=== PATIENT | female | born 1960 | race Caucasian/White ===

== ENCOUNTER 2017-02-21 08:54 | Emergency (ER) | payer OTHER ==
--- NOTE | 2017-02-21 09:12 | CPEKG ---
Heart Rate: 70 RR Interval: 857 P-R Interval: 152 QRSD Interval: 74 QT Interval: 384 QTC Interval: 415 P Clayton: 38 QRS Clayton: 46 T Wave Clayton: 28 EKG Severity - NORMAL ECG - EKG Impression: SINUS RHYTHM Electronically Signed By: Jeff Muñoz 21-Feb-2017 12:03:12
--- NOTE | 2017-02-21 09:16 | EDPHY ---
H & P Stated Complaint: Mid chest pain, radiates to left arm for last 5 mornings Time Seen by Provider: 02/21/17 09:06 HPI/ROS: CHIEF COMPLAINT: Substernal chest pain HISTORY OF PRESENT ILLNESS: The patient presents to the ED for evaluation of 3 weeks of intermittent substernal chest discomfort. The patient states that over the past 3 days frequency and severity has increased. She typically experiences pain at about 5 o'clock in the morning while sleeping. She has had some radiation of the discomfort to her neck and arm. Today she had an episode of generalized lightheadedness and nausea. It lasted approximately 0.5 hours today before resolving. The patient has no risk factors for coronary artery disease. The patient does report there is a familial history of hypertrophic cardiomyopathy however she has had a normal echocardiogram within the past 2 years. The patient denies cigarette use. She denies asymmetric calf pain or swelling. She denies pleuritic chest pain. She currently is asymptomatic. REVIEW OF SYSTEMS: A comprehensive 10 point review of systems is otherwise negative aside from elements mentioned in the history of present illness. Source: Patient - Personal History LMP (Females 10-55): 8-14 Days Ago Current Tetanus Diphtheria and Acellular Pertussis (TDAP): Yes - Medical/Surgical History Hx Asthma: No Hx Chronic Respiratory Disease: No Hx Diabetes: No Hx Cardiac Disease: No Hx Renal Disease: No Hx Cirrhosis: No Hx Alcoholism: No Hx HIV/AIDS: No Hx Splenectomy or Spleen Trauma: No Other PMH: Denies. - Social History Smoking Status: Never smoked - Physical Exam Exam: General Appearance: Alert, no distress Eyes: Pupils equal and round no pallor or injection ENT, Mouth: Mucous membranes moist Respiratory: There are no retractions, lungs are clear to auscultation Cardiovascular: Regular rate and rhythm Gastrointestinal: Abdomen is soft and nontender, no masses, bowel sounds normal Neurological: A&O, normal motor function, normal sensory exam, normal cranial nerves Skin: Warm and dry, no rashes Musculoskeletal: Neck is supple nontender Extremities: symmetrical, full range of motion Constitutional: Initial Vital Signs Temperature (C) 36.5 C 02/21/17 08:55 Heart Rate 88 02/21/17 08:55 Respiratory Rate 18 02/21/17 08:55 Blood Pressure 124/100 H 02/21/17 08:55 O2 Sat (%) 99 02/21/17 08:55 O2 Delivery Mode Room Air Allergies/Adverse Reactions: No Known Allergies Allergy (Unverified 02/21/17 09:00) Home Medications: Medication Instructions Recorded NK [No Known Home Meds] 02/21/17 Medical Decision Making - Diagnostics EKG Interpretation: EKG: Complete interpretation has been separately recorded in the [employer] archive. Summary impression: Sinus rhythm, no ischemic changes noted ED Course/Re-evaluation: The patient presents to the ED for evaluation of 3 weeks of atypical chest discomfort. The patient's initial EKG and cardiac enzymes are within normal limits. The patient's lipase is also within normal limits. The patient is entirely asymptomatic at this point time. She has no risk factors for acute coronary syndrome. I did discuss the case with Cardiology in the patient will be taken to the cardiac lab for evaluation via a treadmill stress test. Update at 1:00 p.m.: The patient has gone for an unremarkable treadmill stress test. At this point time I clinical suspicion for acute coronary syndrome is low. I do feel the patient can be discharged home. It is certainly possible she is experiencing gastroesophageal reflux. I think it would be reasonable to have her begin a trial of ranitidine. The patient will be discharged home with instructions to return to the ED for severe pain or other concerns. She will be referred to her primary care provider for further evaluation. Differential Diagnosis: Differential diagnosis considered includes acute coronary syndrome, esophageal spasm, costochondritis - Data Points Laboratory Results: Laboratory Results 02/21/17 09:15 02/21/17 09:15 02/21/17 02/21/17 02/21/17 09:15 09:15 09:15 WBC 7.53 10^3/uL 10^3/uL (3.80-9.50) RBC 4.60 10^6/uL 10^6/uL (4.18-5.33) Hgb 12.7 g/dL g/dL (12.6-16.3) Hct 38.9 % % (38.0-47.0) MCV 84.6 fL fL (81.5-99.8) MCH 27.6 pg L pg (27.9-34.1) MCHC 32.6 g/dL g/dL (32.4-36.7) RDW 14.6 % % (11.5-15.2) Plt Count 325 10^3/uL 10^3/uL (150-400) MPV 10.7 fL fL (8.7-11.7) Neut % (Auto) 65.5 % % (39.3-74.2) Lymph % (Auto) 22.6 % % (15.0-45.0) [place] % (Auto) 7.0 % % (4.5-13.0) Eos % (Auto) 3.3 % % (0.6-7.6) Baso % (Auto) 1.5 % % (0.3-1.7) Nucleat RBC Rel Count 0.0 % % (0.0-0.2) Absolute Neuts (auto) 4.93 10^3/uL 10^3/uL (1.70-6.50) Absolute Lymphs (auto) 1.70 10^3/uL 10^3/uL (1.00-3.00) Absolute Monos (auto) 0.53 10^3/uL 10^3/uL (0.30-0.80) Absolute Eos (auto) 0.25 10^3/uL 10^3/uL (0.03-0.40) Absolute Basos (auto) 0.11 10^3/uL H 10^3/uL (0.02-0.10) Absolute Nucleated RBC 0.00 10^3/uL 10^3/uL (0-0.01) Immature Gran % 0.1 % % (0.0-1.1) Immature Gran # 0.01 10^3/uL 10^3/uL (0.00-0.10) Sodium 140 mEq/L mEq/L (134-144) Potassium 4.1 mEq/L mEq/L (3.5-5.2) Chloride 106 mEq/L mEq/L (97-110) Carbon Dioxide 24 mEq/l mEq/l (22-31) Anion Gap 10 mEq/L mEq/L (8-16) BUN 17 mg/dL mg/dL (7-23) Creatinine 0.8 mg/dL mg/dL (0.6-1.0) Estimated GFR > 60 Glucose 90 mg/dL mg/dL (70-100) Calcium 10.4 mg/dL mg/dL (8.5-10.4) Troponin I 0.017 ng/mL ng/mL (0-0.034) Lipase 165.0 IU/L IU/L (23-300) Medications Given: Discontinued Medications Aspirin (Aspirin) 324 mg PO EDNOW ONE Stop: 02/21/17 09:21 Last Admin: 02/21/17 09:22 Dose: 324 mg Departure - Departure Disposition: Home, Routine, Self-Care Clinical Impression: Chest pain Condition: Good Instructions: Chest Pain (ED) Additional Instructions: 1. Please begin taking Zantac twice daily as you may be experiencing some acid reflux which is causing her symptoms. 2. All testing done in the emergency department today demonstrates no obvious cardiac problem. 3. Please schedule a follow-up appointment with the primary care provider you have been referred to. Referrals: Jake Scott DO [Doctor of Osteopathy] - As per Instructions
[2017-02-21] MEDS ORDERED: ASPIRIN 81 MG CHEWABLE TAB PO ONE (09:20)
[2017-02-21 09:32] LABS: % IMMATURE GRANULYOCYTES 0.1 % (0.0-1.1); ABSOLUTE IMMATURE GRANULOCYTES 0.01 10^3/uL (0.00-0.10); ADD DIFF? NO; ADD MORPH? NO; ADD SCAN? NO; ATYPICAL LYMPHOCYTE FLAG 10 (0-99); FRAGMENT RBC FLAG 10 (0-99); HEMATOCRIT 38.9 % (38.0-47.0); HEMOGLOBIN 12.7 g/dL (12.6-16.3); LEFT SHIFT FLG 0 (0-99); LIPEMIA HEMOLYSIS FLAG 80 (0-99); MEAN CELL HEMOGLOBIN 27.6 pg (27.9-34.1); MEAN CELL HEMOGLOBIN CONCENTR. 32.6 g/dL (32.4-36.7); MEAN CELL VOLUME 84.6 fL (81.5-99.8); MEAN PLATELET VOLUME 10.7 fL (8.7-11.7); PLATELET CLUMPS FLAG 10 (0-99); PLATELET COUNT 325 10^3/uL (150-400); RED CELL DISTRIBUTION WIDTH 14.6 % (11.5-15.2)
[2017-02-21 09:36] LABS: ANION GAP 10 mEq/L (8-16); CALCIUM 10.4 mg/dL (8.5-10.4); CARBON DIOXIDE 24 mEq/l (22-31); CHLORIDE 106 mEq/L (97-110); CREATININE 0.8 mg/dL (0.6-1.0); GLOMERULAR FILTRATION RATE > 60; GLUCOSE 90 mg/dL (70-100); POTASSIUM 4.1 mEq/L (3.5-5.2); SODIUM 140 mEq/L (134-144)
[2017-02-21 09:46] LABS: TROPONIN I 0.017 ng/mL (0-0.034)
--- NOTE | 2017-02-21 12:48 | PDCONSULT ---
Video Player Mechanic Note: TM stress test report Indication: cp Brief description of procedure: After informed consent was obtained, pt was established to ECG, BP, HR, and oximetry monitoring. At b/l, pt is in SR with Tw flattening inferiorly, BP was 118/86, HR 93. Pt exercised for a total of 7 minutes on Ryan protocol stress test. She achieved HR of 168 which is 101% of MPHR based on age. Peak BP was 176 /84. No ecg changes noted. Pt had no cp. No arrhythmias throughout testing. In recovery, HR, BP, and oximetry remained wnl. Impression: DTS: +7 Conclusion: Low risk TM stress test.
[2017-02-21 13:24] VITALS: BP 127/90; PULSE 77; RESP 16; TEMP 98.4; O2SAT 98
== END 2017-02-21 13:24 | disposition home or self-care (01) ==
DX: R07.2 Precordial pain (principal)

== ENCOUNTER → 2017-09-12 | Outpatient (CLI) | payer OTHER | LOC: FIMAGING 08:24 | PROVIDERS: ATTEND Nurse Practitioner Adult Health | DX: Z12.31 Encounter for screening mammogram for malignant neoplasm of breast (principal) | CPT/HCPCS: G0202 ==

== ENCOUNTER → 2017-09-27 | Outpatient (CLI) | payer OTHER | LOC: FIMAGING 13:47 | PROVIDERS: ATTEND Nurse Practitioner Adult Health | DX: N83.202 Unspecified ovarian cyst, left side (principal); R93.8 Abnormal findings on diagnostic imaging of other specified body structures ==

== ENCOUNTER → 2017-12-18 | Outpatient (CLI) | payer OTHER | LOC: FIMAGING 09:16 | PROVIDERS: ATTEND Surgery | DX: K21.9 Gastro-esophageal reflux disease without esophagitis (principal); K44.9 Diaphragmatic hernia without obstruction or gangrene ==

== ENCOUNTER 2017-12-24 06:03 | Observation (INO) | payer OTHER ==
[~2017-12-24 06:03] MED LIST: LR 1,000 ML IV ONE
[2017-12-24] MEDS ORDERED: BUPIVACAINE 0.5% 30 ML SDV ONE (07:02)
[2017-12-24] MEDS ORDERED: MIDAZOLAM 2 MG/2 ML VIAL IVP ONE (07:05)
--- NOTE | 2017-12-24 07:05 | PDANEPAE ---
ANE History of Present Illness 57 yo for alayna krishnamurthy ANE Past Medical History - Cardiovascular History Hx Hypertension: No Hx Arrhythmias: No Hx Chest Pain: No Hx Coronary Artery / Peripheral Vascular Disease: No Hx CHF / Valvular Disease: No Hx Palpitations: No - Pulmonary History Hx COPD: No Hx Asthma/Reactive Airway Disease: No Hx Recent Upper Respiratory Infection: No Hx Oxygen in Use at Home: No Hx Sleep Apnea: No Sleep Apnea Screening Result - Last Documented: Negative - Neurologic History Hx Cerebrovascular Accident: No Hx Seizures: No Hx Dementia: No - Endocrine History Hx Diabetes: No - Renal History Hx Renal Disorders: No - Liver History Hx Hepatic Disorders: No - Neurological & Psychiatric Hx Hx Neurological and Psychiatric Disorders: No - Cancer History Hx Cancer: No - Congenital Disorder History Hx Congenital Disorders: No - GI History Hx Gastrointestinal Disorders: Yes Gastrointestinal History Comment: HIATAL HERNIA - Other Health History Other Health History: ARTHRITIS - Chronic Pain History Chronic Pain: No - Surgical History Prior Surgeries: NONE ANE Review of Systems Review of Systems: - Exercise capacity METS (RN): 4 METS ANE Patient History - Allergies Allergies/Adverse Reactions: codeine Allergy (Verified 12/17/17 15:27) SEVERE NAUSEA - Home Medications Home medications: home medication list seen and reviewed Home Medications: ASPIRIN DAILY 12/17/17 [Last Taken 12/17/17] Pantoprazole Sodium BID 12/17/17 [Last Taken 12/23/17] Sucralfate BID 12/17/17 [Last Taken 12/23/17] Zantac PRN 12/17/17 [Last Taken 12/23/17] Flonase Nasal [place] 12/24/17 [Last Taken 12/20/17] - NPO status NPO Status: no food or drink >8 hours NPO Since - Liquids (Date): 12/23/17 NPO Since - Liquids (Time): 21:00 NPO Since - Solids (Date): 12/23/17 NPO Since - Solids (Time): 19:00 - Anes Hx Anes Hx: no prior problems - Smoking Hx Smoking Status: Never smoked - Family Anes Hx Family Hx Anesthesia Complications: NEG ANE Labs/Vital Signs - Vital Signs Blood Pressure: 94/74 Heart Rate: 77 Respiratory Rate: 16 O2 Sat (%): 97 Height: 5 ft 6 in Weight: 70.307 kg ANE Physical Exam - Airway Neck exam: FROM Mallampati Score: Class 2 Mouth exam: normal dental/mouth exam - Pulmonary Pulmonary: no respiratory distress - Cardiovascular Cardiovascular: regular rate and rhythym - ASA Status ASA Status: II ANE Anesthesia Plan Anesthesia Plan: general endotracheal anesthesia
[2017-12-24] MEDS ORDERED: PROPOFOL/EMULSION 500 MG/50 ML BOTTLE IV ONE (07:15)
[2017-12-24] MEDS ORDERED: fentaNYL 250 MCG/5 ML INJ ONE (07:18)
[2017-12-24] MEDS ORDERED: REMIFENTANIL HCL 1 MG VIAL ONE (07:18)
[2017-12-24] MEDS ORDERED: cefOXitin SODIUM 2 GM in STERILE WATER INJ 21 ML IV ONE (07:26)
--- NOTE | 2017-12-24 07:27 | PDHPUP ---
History & Physical Update H&P update statement: This history and physical update is based on an assessment of the patient which was completed after admission or registration (within 24 hours), but prior to the surgery/procedure. H&P update: H&P reviewed & patient examined, no change in patient's condition since H&P completed
[2017-12-24] MEDS ORDERED: ROCURONIUM 100 MG/10 ML VIAL ONE (09:08)
[2017-12-24] MEDS ORDERED: KETOROLAC 30 MG/1 ML SDV ONE (09:09)
[2017-12-24] MEDS ORDERED: SUGAMMADEX SODIUM 200 MG/2 ML VIAL IVP ONE (09:09)
[2017-12-24] MEDS ORDERED: ONDANSETRON 4 MG/2 ML VIAL ONE (09:09)
[2017-12-24] MEDS ORDERED: NALOXONE HCL 0.4 MG/ML INJ IVP PRN (09:25)
[2017-12-24] MEDS ORDERED: ONDANSETRON 4 MG/2 ML VIAL IVP PRN (09:25)
[2017-12-24] MEDS ORDERED: HYDROmorphONE/DILAUDID 1 MG/ML INJ IVP PRN (09:25)
--- NOTE | 2017-12-24 09:41 | POSTANESTH ---
Post Anesthetic Evaluation Cardiovascular Status: Normal, Stable Respiratory Status: Normal, Stable Level of Consciousness/Mental Status: Can Participate in Eval Pain Control: Adequate, Prn Tx Ordered Nausea/Vomiting Control: Adequate, Prn Tx Ordered Complications Possibly Related to Anesthesia: None Noted
[2017-12-24] MEDS ORDERED: fentaNYL 100 MCG/2 ML INJ ONE ×2 (10:15→10:43)
[2017-12-24] MEDS: fentaNYL 100 MCG/2 ML INJ IVP PRN ×3 (10:17→10:44)
--- NOTE | 2017-12-24 10:44 | POSTOPPROG ---
Post Op Note Date of Operation: 12/24/17 Surgeon: Merrill Wright Supervisor Adult Education: Dr. Jo Anesthesiologist: Dr. Sanchez Anesthesia: GET(General Endotracheal) Pre-op Diagnosis: GERD Post-op Diagnosis: GERD Procedure: DV fundoplicatoin Inf/Abcess present in the surg proc area at time of surgery?: No EBL: Minimal
[2017-12-24] MEDS: ONDANSETRON 4 MG/2 ML VIAL IVP PRN ×2 (11:39→21:35)
--- NOTE | 2017-12-24 11:44 | GOP ---
[f rep st] OPERATIVE REPORT DATE OF OPERATION: 12/24/2017 SURGEON: Hitesh Wright MD FIBERGLASS FINISHER: Bertrand Jo MD, whose presence was requested by me and medically necessary for the s afe and timely completion of this case. ANESTHESIA: General endotracheal anesthesia per Dr. Sanchez. PREOPERATIVE DIAGNOSIS: Gastroesophageal reflux disease. POSTOPERATIVE DIAGNOSIS: Gastroesophageal reflux disease. PROCEDURE PERFORMED: Robotic fundoplication and hiatal hernia repair. FINDINGS: Patient had a moderate hiatal hernia. No other lesions were identified. ESTIMATED BLOOD LOSS: 20 cc. INDICATIONS: 57-year-old female with a history of reflux. Risks and benefits of procedure are discu ssed with patient and her family, their questions were answered, and they wished to proceed. DESCRIPTION OF PROCEDURE: The patient was in the supine position initially. After the induction of adequate general endotracheal anesthesia, the patient was moved to the modified lithotomy position. The patient was then prepped and draped in the standard surgical fashion. Marcaine 0.5% was injected throughout the supraumbilical area for local anesthesia. An 8-mm incision was made and the abdominal wall was elevated. A Veress needle was inserted and afte r noting proper pressures, the abdomen was insufflated with carbon dioxide. An 8-mm trocar was place d and a camera followed. There was no apparent damage from trocar placement. Four more ports were p laced, three 8-mm ports in the upper abdomen and one 5-mm port in the right mid abdomen. These were all placed under direct vision after injecting 0.5% Marcaine for local anesthesia. The robot was then docked without difficulty. Robotic instruments were then used to perform the disse ction. The Harmonic scalpel was used to take down the gastrohepatic ligament. Dissection was then c arried over the esophagus exposing the right alayna. The dissection proceeded laterally and the superi or portion of the esophagus and the left alayna were exposed. The vagus nerves were seen and preserved throughout the entire case. Next, the posterior window was opened using blunt dissection and the [place] rmonic scalpel. Once this window was achieved, attention was turned to the short gastrics. A significant portion of the short gastric vessels was taken down using a Harmonic scalpel. This anahy ed up the fundus in its entirety. The mediastinal dissection was then performed. This was carefully performed using blunt dissection and minimal energy component. Once the entire visible portion of t he esophagus was freed and the gastroesophageal junction returned to the abdomen, the repair of the h iatal hernia ensued. Interrupted sutures of 3-0 silk were used to approximate the hiatus posteriorly . Enough room was seen for the esophagus and an instrument tip. The fundus was then brought posteri will to the esophagus and the wrap performed. Initial suture took bites of stomach, anterior esophag us, and stomach. Care was taken again to avoid the vagus nerve. Two more sutures of 3-0 silk were u sed to create the wrap inferiorly. This was a loose floppy wrap. No other lesions were identified a t this time. Good hemostasis was noted. The robot was then undocked. Trocars were removed under direct vision. The pneumoperitoneum was all owed to escape. The wounds were thoroughly irrigated. The skin at all sites was closed using 4-0 Mo nocryl in a subcuticular suture. Wounds were sterilely dressed and the patient was returned to the s upine position and extubated. The patient was then taken to the PACU in stable condition. COMPLICATIONS: None. DRAINS: None. ADDENDUM: A partial wrap was completed posteriorly. Anchoring sutures were placed in the diaphragm. Separate sutures were then taken of the esophagus and stomach, 3 to a side, to complete a 270 degre e wrap. /[id number]/MODL
[2017-12-24] MEDS: HYDROmorphONE/DILAUDID 1 MG/ML INJ IVP PRN ×2 (15:35→21:35)
[2017-12-24] MEDS: LR 1,000 ML IV SCH (15:38)
[2017-12-25] MEDS: LR 1,000 ML IV SCH (03:25)
[2017-12-25] MEDS: ONDANSETRON 4 MG/2 ML VIAL IVP PRN ×2 (03:42→07:55)
[2017-12-25] MEDS: HYDROmorphONE/DILAUDID 1 MG/ML INJ IVP PRN ×2 (03:42→07:54)
[2017-12-25] MEDS ORDERED: OXYCODONE/APAP 5/325 TAB PO PRN (09:24)
--- NOTE | 2017-12-25 09:38 | SOAPPROG ---
SOAP Progress Note Assessment/Plan: Assessment: S/P fundoplication, doing well. PO pain meds. D/c if zackary. Reviewed diet with patient, questions answered. Plan: 12/25/17 09:36 Subjective: Patient without complaints, pain controlled, no N/V. Zackary po, ambulating, voiding. Objective: Vital Signs Temp Pulse Resp BP Pulse Ox 36.8 C 78 16 146/92 H 94 12/25/17 07:25 12/25/17 07:25 12/25/17 07:25 12/25/17 07:25 12/25/17 07:25 12/24/17 12/25/17 12/26/17 05:59 05:59 05:59 Intake Total 4292 260 Output Total 1100 Balance 3192 260 Alert, NAD RRR Abd soft, [employer] C/D/I ICD10 Worksheet Patient Problems: Problems Problem Status Onset GERD (gastroesophageal reflux disease) Acute - ICD10 Problem Qualifiers (1) GERD (gastroesophageal reflux disease)
[2017-12-25] MEDS ORDERED: HYDROmorphONE/DILAUDID 2 MG/ML INJ IVP PRN (10:00)
[2017-12-25] MEDS ORDERED: KETOROLAC 15 MG/1 ML SDV IVP SCH (11:00)
[2017-12-25 11:06] VITALS: TEMP 98
[2017-12-25 11:11] VITALS: BP 165/88; PULSE 72; RESP 18; O2SAT 97
--- NOTE | 2017-12-26 15:55 | ASDISCHSUM ---
Discharge Information Plan Status:Home with No Needs Medically Cleared to Leave: Discharge Date:12/25/2017 05:33 PM CM D/C Disposition:Home, Routine, Self-Care ADT D/C Disposition:Home, Routine, Self-Care Projected Discharge Date:12/25/2017 05:33 PM Transportation at D/C: Discharge Delay Reason: Follow-Up Date:12/25/2017 05:33 PM Discharge Slot: Final Diagnosis: Placement Information Patient Contact Information Contact Name:ASHLEIGHALDAIRTALISHAEDGAR Relationship: Address:[address] [place] [address] City:[place] Alternate Phone: State/Zip Code:[place] [address] Email: Financial Information Financial Class:[employer] Primary Plan Desc:[employer] OPEN [employer] LOCAL Primary Plan Number:[id number] Secondary Plan Desc: Secondary Plan Number: Assessment Information Intervention Information
== END 2017-12-25 17:33 | disposition home or self-care (01) ==
LOC: F3E 06:03
PROVIDERS: ADMIT Surgery; ATTEND Surgery
PROC: 0DV44ZZ Restriction of Esophagogastric Junction, Percutaneous Endoscopic Approach (ICD-10-PCS; principal; 2017-12-24 07:30)
PROC: 8E0WXCZ Robotic Assisted Procedure of Trunk Region (ICD-10-PCS; principal; 2017-12-24 07:30)
DX: K21.9 Gastro-esophageal reflux disease without esophagitis (principal); K44.9 Diaphragmatic hernia without obstruction or gangrene; R12 Heartburn; Z82.49 Family history of ischemic heart disease and other diseases of the circulatory system
CPT/HCPCS: 43280; G0378; J0694; J1170; J1885; J2250; J2405; J2704; J3010

== ENCOUNTER → 2018-01-27 | Outpatient (CLI) | payer OTHER | LOC: FIMAGING 10:07 | PROVIDERS: ATTEND Internal Medicine Endocrinology, Diabetes & Metabolism | DX: Z13.820 Encounter for screening for osteoporosis (principal); E21.3 Hyperparathyroidism, unspecified ==

== ENCOUNTER → 2018-06-04 | Outpatient (CLI) | payer OTHER | LOC: FIMAGING 08:11 | PROVIDERS: ATTEND Surgery | DX: R19.8 Other specified symptoms and signs involving the digestive system and abdomen (principal) ==